=== PATIENT | male | born 1995 | race Caucasian/White ===

== ENCOUNTER 2016-08-27 19:43 | Emergency (ER) | payer MEDICAID ==
[~2016-08-27] VITALS: Ht 167.6 cm; Wt 77.0 kg
[2016-08-27 19:52] VITALS: Ht 167.6 cm; Wt 77.0 kg
[2016-08-27] MEDS ORDERED: morphine 4 MG/ML VIAL IV STA (20:06)
[2016-08-27] MEDS ORDERED: ONDANSETRON 4 MG INJ IV STA (20:06)
[2016-08-27 20:17] LABS: ADD SCAN DIFF NO
[2016-08-27 20:19] LABS: BASOPHIL # 0.1 10^3/ul (0.0-0.1); BASOPHILS % 0.4 % (0.0-2.0); EOSINOPHILS # 0.3 10^3/ul (0.0-0.5); EOSINOPHILS % 2.1 % (0.0-7.0); HEMATOCRIT 48.6 % (42.0-52.0); LYMPHOCYTES # 3.7 10^3/ul (0.8-2.9); MEAN CORPUSCULAR HEMOGLOBIN 32.1 pg (29.0-33.0); MEAN CORPUSCULAR VOLUME 91.7 fl (72.0-104.0); MEAN PLATELET VOLUME 10.4 fl (7.4-10.4); MONOCYTE # 1.2 10^3/ul (0.3-0.9); MONOCYTES % 7.6 % (0.0-13.0); NEUTROPHIL # 10.6 10^3/ul (1.6-7.5); NEUTROPHILS % 66.4 % (30.0-74.0); PLATELET COUNT 337 10^3/UL (140-415); RED CELL DISTRIBUTION WIDTH 13.1 % (11.5-14.5)
[2016-08-27] MEDS ORDERED: DIPHTH/TET/ACEL PERTUSS (ADULT) 0.5 ML VIAL IM* ONE (20:30)
[2016-08-27 20:31] LABS: INR 0.97; PARTIAL THROMBOPLASTIN TIME 25.4 Sec (25.0-35.0); PROTIME 12.9 Sec (12.2-14.2)
[2016-08-27 20:35] LABS: POTASSIUM 3.7 mmol/L (3.5-5.1)
[2016-08-27 20:37] LABS: CREATININE 0.96 mg/dl (0.61-1.24)
[2016-08-27 20:38] LABS: BILIRUBIN,INDIRECT 0.2 mg/dl (0-1.1); BILIRUBIN,TOTAL 0.2 mg/dl (0.2-1.3); CALCIUM 9.1 mg/dl (8.4-10.2); TOTAL PROTEIN 7.9 g/dl (6.1-8.1)
[2016-08-27] MEDS ORDERED: IOHEXOL 300MG/ML 150 ML BTL ONE (20:39)
[2016-08-27] MEDS ORDERED: SOD CHLORIDE 0.9% 100 ML ONE (20:39)
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
--- NOTE | 2016-08-27 21:48 | RADRPT ---
PROCEDURE: CT chest with contrast CLINICAL INDICATION: Post traumatic chest pain TECHNIQUE: CT scan of the chest with contrast was performed . The patient was scanned following t he uncomplicated intravenous administration of 120 cc Omnipaque-300 intravenous contrast. Coronal a nd sagittal images were reformatted. CTDI = 12.07 mGy; DLP = 935.38 mGy-cm COMPARISON: None available. FINDINGS: Lungs, airway and pleura: The trachea and bronchi are patent as well as normal in caliber. There is no evidence of pulmonary laceration, parenchymal contusion or pneumothorax. The pleural spaces are clear, without effusions. The diaphragm appears intact. Cardiovascular, mediastinum and kaushik: The heart is normal in size. There is no evidence of pericar dial effusion. The thoracic aorta is normal in caliber without evidence of aneurysm or dissection. No obvious filling defects in the pulmonary arteries are identified to suggest embolism. No mediast inal hematoma or pneumomediastinum is present. The esophagus is normal in caliber. Musculoskeletal and soft tissues: No evidence of fracture involving the osseous thorax. Bone joanna ecture and mineralization are normal. There is no evidence of chest wall abnormality. The axillary regions are unremarkable. Visualized upper abdomen. Please see the separate CT abdomen report. RPTAT:HJJR IMPRESSION: 1. Normal CT of the thorax with contrast. 2. No evidence of acute post traumatic intrathoracic abnormality. Physician Karlie Date Time Electronically viewed and signed by Physician Karlie on 08/27/2016 21:48 /
[2016-08-27] MEDS ORDERED: HYDR-902 PO (21:58)
[2016-08-27] MEDS ORDERED: IBUP-1542 PO (21:58)
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
[2016-08-27 22:09] VITALS: BP 117/56; PULSE 91; RESP 13; TEMP 98.8
== END 2016-08-27 22:10 | disposition home or self-care (01) ==
LOC: E/R 19:43
DX: S06.0X1A Concussion with loss of consciousness of 30 minutes or less, initial encounter (principal); F17.210 Nicotine dependence, cigarettes, uncomplicated; R07.9 Chest pain, unspecified; V43.62XA Car passenger injured in collision with other type car in traffic accident, initial encounter
CPT/HCPCS: 70450; 71010; 71260; 72125; 73590; 74177; 80048; 80076; 80306; 85025; 85610; 85730; 90715; 93005; J2270; J2405; Q9967; Z7610; 36415; 90471; 96374; 96375